=== PATIENT | female | born 1995 | race Two or more races ===

== ENCOUNTER 2024-12-06 14:22 | Outpatient (CLI) | payer OTHER | END 2024-12-06 14:33 | disposition home or self-care (01) | LOC: PRENATAL 14:22 | DX: O44.00 Complete placenta previa NOS or without hemorrhage, unspecified trimester (principal); Z3A.19 19 weeks gestation of pregnancy ==

== ENCOUNTER 2025-04-03 09:01 | Outpatient (CLI) | payer OTHER | END 2025-04-03 09:04 | disposition home or self-care (01) | LOC: PRENATAL 09:01 | PROVIDERS: ATTEND Obstetrics & Gynecology Maternal & Fetal Medicine | DX: O26.843 Uterine size-date discrepancy, third trimester (principal); O36.8130 Decreased fetal movements, third trimester, not applicable or unspecified; O24.419 Gestational diabetes mellitus in pregnancy, unspecified control; O40.3XX0 Polyhydramnios, third trimester, not applicable or unspecified; Z3A.36 36 weeks gestation of pregnancy ==